=== PATIENT | male | born 1980 | race Caucasian/White ===

== ENCOUNTER → 2019-12-14 12:34 | Outpatient (CLI) | payer BC, SELFPAY ==
--- NOTE | ~2019-12-14 | CT_ITS ---
EXAMINATION: CT abdomen pelvis wo con DATE: 12/14/2019 12:53 INDICATION: Chronic prostatitis TECHNIQUE: Computed tomography (CT) of the abdomen and pelvis was performed without intravenous contr ast. The dose-length product (DLP) was 817.14 mGy-cm. Automated exposure control and iterative recons truction technique were employed. COMPARISON: None FINDINGS: The lung bases are clear. The heart size is normal. The liver, pancreas, gallbladder, and adrenal glands are normal. The kidneys are unremarkable. There is mild splenomegaly. Mild mesenteric lymphadenopathy is also noted. There is no free intraperitoneal gas or evidence of bowel obstruction. A moderate volume of colonic stool is present. The prostate is unremarkable. There is moderate lumba r spondylosis. IMPRESSION: 1. Unremarkable prostate by CT. 2. Mild splenomegaly and mesenteric lymphadenopathy of unclear etiology. Findings could be reactive h owever lymphoma could have a similar appearance. Reviewed, dictated and finalized at location A. EMIC GUIDANCE SPECIALIST IMPRESSION: 1. Unremarkable prostate by CT. 2. Mild splenomegaly and mesenteric lymphadenopathy of unclear etiology. Findin gs could be reactive however lymphoma could have a similar appearance.
== END ==
PROVIDERS: Visit Provider Urology
DX: N41.1 Chronic prostatitis (principal); R16.1 Splenomegaly, not elsewhere classified
CPT/HCPCS: 74176

== ENCOUNTER 2020-11-09 08:51 | Emergency (ER) | payer BC, SELFPAY ==
[2020-11-09 09:01] VITALS: BP 130/81; PULSE 77; RESP 16; TEMP 36.6; O2SAT 100
--- NOTE | 2020-11-09 09:30 | ED.SKABFB ---
HPI - Skin/Abscess/Foreign Bdy General Chief complaint: Wound/Laceration Stated complaint: spots on chest wants checked Time Seen by Provider: 11/09/20 09:30 Source: patient, RN notes reviewed and old records reviewed Mode of arrival: ambulatory Limitations: no limitations History of Present Illness HPI narrative: 40-year-old male who presents to [facility] with complaints of 2 pimple type of lesions on chest. Patient states that one lesion has been there for the past month and the other for the past 2 days. patient is concerned for possible MRSA states that he does martial arts and is on mats and in close contact with others. Patient states that he does shave his chest area also, using tea tree oil to lesions.Patient denies any fevers, chills or sweats, denies any acute itching to site or acute pain. Patient has had COVID vaccinations. MD complaint: lesion Related Data Allergies Allergy/AdvReac Type Severity Reaction Status Date / Time No Known Allergies Allergy Unknown Verified 11/09/20 09:23 Review of Systems Review of Systems: CONSTITUTIONAL: Denies fever, chills, or sweats. EYES: Denies visual changes, redness, or discharge. ENT: Denies rhinorrhea, congestion, sore throat, or otalgia. CARDIOVASCULAR: Denies chest pain, palpitations, or edema. RESPIRATORY: Denies cough or dyspnea. GASTROINTESTINAL: Denies abdominal pain, nausea, vomiting, or diarrhea. GENITOURINARY: Denies dysuria or hematuria. SKIN:pimple type of lesions to chest with no drainage, pain, or itching. MUSCULOSKELETAL: Denies back pain, joint pain, or myalgia. NEUROLOGIC: Denies headache, numbness, or weakness. PSYCHIATRIC: Positive for history of anxiety or depression. 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 Surgical History Surgical History (Updated 11/09/20 @ 09:45 by Cadence Ortega NP) [place] teeth extracted Family History Family History Mother Patient's mother is in good health Father Patient's father is in good health Sibling Patient's sister is in good health Patient's brother is in good health Grandparent Malignant neoplasm of prostate Social History Social History Smoking status: Never smoker Alcohol intake: current Substance use: never Gender identity (if verbalized by the patient): Male Comments At time of signature, agree with nursing past medical, surgical, social and family history. There is no relevant family history pertinent to the presenting complaint Exam Narrative: GENERAL: Well-appearing, well-nourished, and in no acute distress. HEAD: Normocephalic, atraumatic. EYES: PERRLA and EOMI. ENT: Nares clear, no rhinorrhea or epistaxis. Mucous membranes moist.TM's normal with no drainage, throat pink with no lesions or exudates NECK: Supple. no lymphadenopathy CHEST: Clear to auscultation. No respiratory distress.SAO2 100% on room air HEART: Regular rate and rhythm. No murmur heard. Normal peripheral pulses. ABDOMEN: Soft, nontender, nondistended, normal active bowel sounds. EXTREMITIES: Normal range of motion. No edema. SKIN: Warm, dry, 2 pimple type of lesions to chest with no drainage present, one has been there for 1 month the other appeared 2 days ago, does shave chest area. NEURO: No focal deficits. Alert and oriented x3. Course Vital Signs Vital signs: Vital Signs Temperature 36.6 C 11/09/20 09:01 Pulse Rate 77 11/09/20 09:01 Respiratory Rate 16 11/09/20 09:01 Blood Pressure 130/81 11/09/20 09:01 Pulse Oximetry 100 11/09/20 09:0
== END 2020-11-09 09:53 | disposition home or self-care (01) ==
PROVIDERS: Emergency Provider Registered Nurse; PCP Family Medicine
DX: L73.9 Follicular disorder, unspecified (principal); K21.9 Gastro-esophageal reflux disease without esophagitis
CPT/HCPCS: 99213; G0463

== ENCOUNTER → 2021-10-04 10:14 | Outpatient (CLI) | payer BC, SELFPAY ==
--- NOTE | ~2021-10-04 | CT_ITS ---
EXAMINATION: CT abdomen pelvis wo con DATE: 10/04/2021 10:30 INDICATION: Overactive bladder TECHNIQUE: Computed tomography (CT) of the abdomen and pelvis was performed without intravenous contr ast. The dose-length product (DLP) was 835.98 mGy-cm. Automated exposure control and iterative recons truction technique were employed. COMPARISON: 12/14/2019 FINDINGS: The lung bases are clear. The heart size is normal. The liver, spleen, pancreas, gallbladde r, and adrenal glands are normal. The kidneys are unremarkable. No pathologically enlarged abdominal or pelvic lymph nodes are identified. There is no free intraperitoneal gas or evidence of bowel obstr uction. There is moderate lumbar spondylosis. IMPRESSION: 1. No CT correlate for the patient's symptoms. Reviewed, dictated and finalized at location B.
== END ==
PROVIDERS: PCP Family Medicine; Visit Provider Urology
DX: N32.81 Overactive bladder (principal)
CPT/HCPCS: 74176

== ENCOUNTER → 2023-01-29 10:25 | Outpatient (CLI) | payer BC, SELFPAY ==
--- NOTE | ~2023-01-29 | XR_ITS ---
Left Shoulder Technique: AP and scapular Y views, and axillary were obtained. Clinical History: Pain Findings: No fracture or dislocation is seen. Osseous alignment is anatomic. The glenohumeral and acr omioclavicular joint spaces are preserved. Small humeral head ossific present. Soft tissues are unrem arkable. Impression: Small humeral head osteophyte. Reviewed, dictated and finalized at location . 'S CARPENTER Impression: Small humeral head osteophyte.
== END ==
PROVIDERS: PCP Physician Assistant Medical; Visit Provider Physician Assistant Medical
DX: M25.712 Osteophyte, left shoulder (principal)
CPT/HCPCS: 73030

== ENCOUNTER 2023-03-31 07:50 | Outpatient (CLI) | payer BC, SELFPAY ==
--- NOTE | ~2023-03-31 | MR_ITS ---
MRI of the left shoulder Technique: Axial proton-density fat-sat images, coronal proton density fat-sat and T2 fat-sat images, and sagittal T1-weighted and T2 fat-sat images were acquired. Clinical History: Pain Findings: There is minimal AC joint degenerative change. Coracoclavicular, coracoacromial, and coraco humeral ligaments are intact. Supraspinatus and infraspinatus tendons are intact, without partial or full-thickness tear. There is minimal tendinosis. Subscapularis tendon is intact, with mild tendinosis. Tendon of the long head of the biceps is intact. There is probable degenerative tearing of the superior labrum, extending to the anterosuperior portio n. Possible degenerative tearing of the posterior inferior labrum as well. There is mild degenerative change of the glenohumeral joint. Inferior glenohumeral ligament is intact . There are small glenohumeral joint effusion. No fluid distention of the subacromial/subdeltoid burs a. There is fluid and subscapularis recess. No muscle atrophy or edema. Impression: Superior degenerative labral tearing extending to the anterosuperior portion. Questionable degenerati ve tearing at the posterior inferior labrum. Mild glenohumeral joint degenerative change with small glenohumeral joint effusion. Mild rotator cuff tendinosis. Reviewed, dictated and finalized at [facility]. [place] EVENT ASSISTANT Impression: Superior degenerative labral tearing extending to the anterosuperior portion. Q uestionable degenerative tearing at the posterior inferior labrum. Mild glenohumeral joint degenerative change with small glenohumeral joint effus ion. Mild rotator cuff tendinosis.
== END 2023-03-31 07:51 | disposition home or self-care (01) ==
PROVIDERS: PCP Family Medicine; Visit Provider Family Medicine
DX: M25.412 Effusion, left shoulder (principal)
CPT/HCPCS: 73221

== ENCOUNTER 2023-07-28 00:12 | Day surgery (SDC) | payer BC, SELFPAY ==
[2023-07-17 15:18] VITALS: BMI 25.5
--- NOTE | 2023-07-17 15:23 | PC.NURSE ---
Report to the Outpatient Waiting Room, entrance under the green pavilion located off [facility], at time _0600_ on date _[id number]_. Planned Procedure Time: _0730_. Time changes happen often and if your time is changed the preop area will call you the afternoon before. - You and your visitor will be asked to self-screen and do not enter if you have any COVID symptoms. - A mask is optional within the hospital at this time. Patients may have clear liquids (water, carbonated beverages, clear teas, apple juice) until 3 hours prior to surgery with a maximum of 20 ounces. - No food from midnight until time of surgery Take the following medications with a SIP of water the morning of surgery: ___Sertraline DO NOT STOP ANY OF YOUR OTHER PRESCRIPTION MEDICATIONS PRIOR TO SURGERY ?EXCEPT THE FOLLOWING Medications to discontinue per physician ___None Date to take last dose Please no make-up, nail hungarian, hairspray, perfume, deodorant, or body powder the day of surgery. No jewelry (including any body piercings) or valuables the day of surgery, leave them at home. Please take a shower or bath the night before, or the morning of, surgery with an antibacterial soap. Wear comfortable, loose fitting clothing. - Jewelry must be removed prior to entering the operating room. Rings and piercings that are not removed may be cut off. - The hospital will not accept responsibility for valuables. - Please leave all valuables, including medications, at home the day of surgery. If you are going home after surgery, a licensed auto crane driver must drive you home. - NO public transportation without another adult if you receive anesthesia. - We recommend that an adult stay with you for 24 hours following discharge. - We also recommend that you do not drive, make important decision, drink alcoholic beverages, or take any drugs that were not prescribed by your health care provider for at least 24 hours after your discharge time. Follow any additional instructions given to you from your surgeon. If you or anyone in your household have experienced Covid symptoms in the past week, please notify your surgeon or the nurse liaison at the phone number below for possible testing. Telephone instructions given to _Nick__and asked if any additional questions and then verbalized understanding. Patient advised to call surgeon office or pre surgery nurse liaison [phone] if any additional questions.
[2023-07-28] VITALS (9 sets, daily range): BP systolic 110–127; BP diastolic 59–82; PULSE 59–72; RESP 12–17; TEMP 36.1–36.3; O2SAT 96–100; BMI 25.7
--- NOTE | 2023-07-28 06:54 | WPDHPUPDATE1 ---
History and Physical Update Update Date/Time: 07/28/23 06:54 History and Physical has been reviewed, including an updated exam of the patient. There are NO changes in the patient's condition. Risks, benefits, and alternatives have been discussed and questions answered. Patient agrees to proceed with procedure.
[2023-07-28] MEDS: LACTATED RINGERS 1,000 ML 30 ML IV CONT ×2 (07:05→09:12)
[2023-07-28] MEDS: ACETAMINOPHEN 500 MG TABLET 1000 MG PO (07:06)
[2023-07-28] MEDS: KETOROLAC 15 MG/ML VIAL (*BKC) IV PUSH (07:06)
--- NOTE | 2023-07-28 07:15 | P.PNAN_ITS ---
Anes - Initial Pre Proc Eval Procedure: Operation Date: 07/28/23 07:30 Proposed Procedures p Left Shoulder Arthroscopic Debridement, Possible Biceps Tenodesis - Tobin Rowland MD Date/Time: 07/28/23 07:15 Surgeon: Tobin Rowland MD Pre Op Diagnosis: left shoulder superior glenoid labral tear Patient Data Age: 42 Gender: M Height: 1.8 m Weight: 83.6 kg Last Vital Signs Temp 97.4 F L 07/28/23 06:33 Pulse 61 07/28/23 06:33 BP 110/71 07/28/23 06:33 Pulse Ox 99 07/28/23 06:33 O2 Del Method Room Air 07/28/23 06:33 Allergies Allergy/AdvReac Type Severity Reaction Status Date / Time No Known Allergies Allergy Unknown Verified 07/17/23 15:17 Home Medications Medication Instructions Recorded Confirmed Type testosterone enanthate 50 mg/0.5 50 mg subcut WEEKLY 04/27/23 07/17/23 History mL subcutaneous auto-injector sertraline 100 mg tablet 100 mg PO DAILY 07/17/23 07/28/23 History Patient hx anesthesia problems: none Family hx anesthesia problems: none Results Review: All pre-operative results and documents have been reviewed as part of the pre- operative evaluation. 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 Surgical History Surgical History [place] teeth extracted Family History Family History Mother Patient's mother is in good health Father Patient's father is in good health Sibling Patient's sister is in good health Patient's brother is in good health Grandparent Malignant neoplasm of prostate Social History Social History Smoking status: Never smoker Alcohol intake: current Substance use: never Living arrangements: with family Occupation/Education: occupation Gender identity (if verbalized by the patient): Male Spiritual care concerns: No Anes - Eval Final PreProcedure Day of Procedure 07/28/23 07:15 Patient weight: normal Heart: regular rate and rhythm Lungs: clear to auscultation Airway: Mallampati scale class II Neurological: alert and oriented Last oral intake: >/= 8 hours ASA classification: I Emergent: no Anesthetic plan: proceed Anesthesia type and monitoring: general ETT and standard monitoring Results Review: All pre-operative results and documents have been reviewed as part of the pre- operative evaluation. Adrian rodrigues, no cp or sob. Informed Consent: The patient's anesthetic plan and its attendant risks and benefits were discussed with the patient/family/POA. Questions were solicited and answers provided to the satisfaction of the patient/family/POA.
--- NOTE | 2023-07-28 07:27 | WPDANESPNB ---
Anes - Peripheral Nerve Block Date/Time: 07/28/23 07:27 I have discussed with the patient/family/POA the placement of a peripheral nerve block for post-operative pain management, including associated risks, benefits, complications, and side effects. Alternative methods of post-operative analgesia were detailed. Questions were solicited and answers provided to the satisfaction of the patient/family/POA. Time-Out: A pre-procedural Time-Out was completed immediately before starting the procedure and confirmed: Patient Identification, Site, Procedure, Patient Position and the Availability of Requisite Equipment. Clinical Indications: Acute post-operative pain management requested by the operative surgeon. Nerve Block Insertion Note Anes-nerve block: interscalene left Patient position: supine Skin prep: chlorhexidine Needle: 22 gauge, stimulating, insulated echogenic needle. Needle length: 80 mm Technique: ultrasound Injectate: other (Bupiv 0.5%, 15 mls. ) Observations: tolerated well Complications: none Procedure start time:: 721 Procedure end time::
[2023-07-28] MEDS: ceFAZolin 2 GM/D5W 50 ML 2 GM/50 ML BAG IVPB (07:45)
--- NOTE | 2023-07-28 07:53 | P.OP_ITS ---
Procedure Note - Detailed Date of Procedure 07/28/23 Pre-op Diagnosis 1. Left shoulder superior glenoid labral tear 2. Degenerative arthritis left shoulder 3. Multiple loose bodies left shoulder Post-op Diagnosis Same Procedure Performed Left shoulder 1. Arthroscopic biceps tenodesis 2. Arthroscopic extensive debridement of labrum, synovectomy, chondroplasty, including removal of multiple loose bodies. Surgeon Tobin Rowland MD Stretcher Leveler Operator Helper Darlene Nice PA-C Anesthesia General Findings Extensive 360 degree labral tearing. Moderate chondromalacia both on the humeral and glenoid side at grade 3. No discrete lesion amenable to microfracture. Multiple loose bodies in the axillary pouch and subscapularis recess debrided. Proliferative synovitis treated with partial synovectomy. Biceps tenodesis performed arthroscopically with Arthrex SwiveLock anchor and a loop and tack system. The sub acromial space appeared benign. The rotator cuff was healthy. Small early osteophytes on the inferior humerus were identified. Description of Procedure An interscalene block was performed in the preop holding area. Ancef antibiotic was given. A general anesthetic was administered. The patient was carefully placed in beach chair position. The head neck and arms were carefully position. The shoulder showed no abnormal findings upon examination under anesthesia. Standard posterior and anterior arthroscopic portals were established. Inflow refill pump. Arthritic changes on the humerus and the glenoid were medially identified and treated with chondroplasty. The arthroscopic shaver and radiofrequency probe were utilized. The labrum was involved 360?. The SLAP tear was unstable. There was some hyperemia on the biceps as well. The rotator cuff was normal. The loose bodies were carefully debrided in the sub scapular recess as well as in the axillary pouch. There was well over a dozen small fragments cartilage. There was no significant contracture. The biceps was secured with loop and tack system and then released from the superior labrum. The SwiveLock anchor was utilized to perform a nice robust tenodesis. There did not appear to be significant subcoracoid impingement. Subtle adhesions in the anterior subscapularis were gently released. Care was taken to stay lateral to the nervous structures. The subacromial space was inspected and found to be benign without any evidence of severe impingement. Implants Arthrex 3.75 SwiveLock anchor. Estimated Blood Loss 10 Drains No Packing No Pathology None sent Complications No immediate complications Condition Stable Disposition PACU [facility] Billing Surgery - Charge Forward: Surgery Billing
[2023-07-28] MEDS: EPINEPHrine HCL INJ 1 MG/ML AMPUL 3 MG IRRIGATION (08:23)
== END 2023-07-28 11:14 | disposition home or self-care (01) ==
PROVIDERS: PCP Family Medicine; Visit Provider Orthopaedic Surgery
PROC: (CPT 29805; principal; 2023-07-28 07:30)
DX: S43.432A Superior glenoid labrum lesion of left shoulder, initial encounter (principal); M75.82 Other shoulder lesions, left shoulder; M19.012 Primary osteoarthritis, left shoulder; M24.012 Loose body in left shoulder; M65.812 Other synovitis and tenosynovitis, left shoulder; X58.XXXA Exposure to other specified factors, initial encounter; G89.18 Other acute postprocedural pain; F41.9 Anxiety disorder, unspecified; F32.A Depression, unspecified
CPT/HCPCS: 29828; 29823; 64415; A4565; A9270; C1713; J0171; J0690; J1100; J1885; J2250; J2405; J2704; J3010; J7120